=== PATIENT | male | born 1965 | race Caucasian/White ===

== ENCOUNTER 2019-04-11 17:58 | Emergency (ER) | payer OTHER ==
[~2019-04-11] VITALS: Ht 157.5 cm; Wt 100.0 kg
[~2019-04-11 17:58] MED LIST: AMLO5TAB88; BENA20TA10; BUSP10TA4
[2019-04-11] MEDS ORDERED: KETOROLAC 60MG/2ML VIAL IM ONE (22:15)
[2019-04-11 23:48] VITALS: BP 171/119
== END 2019-04-11 23:55 | disposition home or self-care (01) ==
LOC: ER 17:58
DX: G57.01 Lesion of sciatic nerve, right lower limb (principal); J45.909 Unspecified asthma, uncomplicated; I10 Essential (primary) hypertension; Z79.899 Other long term (current) drug therapy
CPT/HCPCS: 96372; 99283; J1885